=== PATIENT | male | born 1985 | race Caucasian/White ===

== ENCOUNTER 2017-03-05 08:45 | Emergency (ER) | payer OTHER ==
[~2017-03-05] VITALS: Ht 182.9 cm; Wt 79.7 kg
[2017-03-05 08:47] VITALS: BP 119/82; PULSE 81; RESP 16; TEMP 97.8; O2SAT 98
--- NOTE | 2017-03-05 09:32 | PD ---
HPI Chief Complaint: Injury Time Seen by Provider: 09:00 Travel History International Travel<30 days: No Contact w/Intl Traveler<30days: No Traveled to known affect area: No History of Present Illness HPI 32-year-old male here with complaint of left hand pain. Yesterday patient was attempting to get out of vehicle unstuck from a muddy area, when he got his hand pinched between a tire and the 2 x 4. Patient notes pain in the lateral aspect around the fourth and fifth digits of the hand ever since. Patient is right-hand dominant. No numbness or tingling. He denies any pain in the wrist , forearm, elbow, humeral region, shoulder. PFSH Past Medical History Medical History: Denies Significant Hx Tetanus Vaccination: Unknown Influenza Vaccination: No Past Surgical History Ear Surgery: Yes Social History Alcohol Use: Yes Tobacco Use: Yes (1 PPD) Substance Use: No Allergies-Medications (Allergen,Severity, Reaction): Coded Allergies: Penicillin (Verified Allergy, Unknown, 03/05/17) Tegretol (Verified Allergy, Unknown, 03/05/17) Reported Meds & Prescriptions Reported Meds & Active Scripts Active No Active Prescriptions or Reported Medications Review of Systems Except as stated in HPI: all other systems reviewed are Neg Physical Exam Narrative GENERAL: Well-appearing male in no acute distress SKIN: Focused skin assessment warm/dry. HEAD: Normocephalic. EYES: No scleral icterus. No injection or drainage. ENT: Mucous membranes pink and moist. CARDIOVASCULAR: Regular rate and rhythm. RESPIRATORY: No accessory muscle use. MUSCULOSKELETAL: Left hand is edematous, ecchymotic with tenderness to palpation over the fifth metacarpal ray. He is able to flex and extend the digits without any dysfunction, albeit with pain of the fourth and fifth digit. Range of motion at the wrist, and the remainder of the upper extremities unremarkable. Good distal sensation, capillary refill and pulses. NEUROLOGICAL: Awake and alert. Normal speech. PSYCHIATRIC: Appropriate mood and affect; insight and judgment normal. Data Data Last Documented VS Vital Signs Date Time Temp Pulse Resp B/P Pulse Ox O2 Delivery O2 Flow Rate FiO2 03/05/17 08:47 97.8 81 16 119/82 98 Orders Hand, Complete ([id number]) (03/05/17 ) Support Splint (03/05/17 09:27) Mandatory Outpatient Referral (03/05/17 09:32) [facility] Medical Decision Making Medical Screen Exam Complete: Yes Emergency Medical Condition: Yes Medical Record Reviewed: Yes Differential Diagnosis 32-year-old right-hand dominant male here with left hand pain since yesterday after petting between a tire and a 2 x 4. Differential includes metacarpal fracture, carpal fracture, dislocation, sprain, contusion. Narrative Course X-rays of the left hand were obtained that by my read shows a fracture of the left fifth metacarpal, nondisplaced. Patient placed in an ulnar gutter will be discharged home to follow up with hand surgery. Diagnosis Primary Impression: Fracture of fifth metacarpal bone of left hand Referrals: Cain Krishna III, MD call for appointment Additional Instructions: Splint as applied. Call hand surgeon, Dr. Krishna, for outpatient follow-up. Scripts No Active Prescriptions or Reported Meds Disposition: 01 DISCHARGE HOME Condition: Stable Rissa Jean MD March 05, 2017 09:32
--- NOTE | 2017-03-05 10:08 | RADHPO ---
EXAM DATE/TIME: 03/05/2017 09:13 [facility] COMPARISON: No previous studies available for comparison. INDICATIONS : Left hand pain, patient hand got stuck under a board and truck tire last night. MEDICAL HISTORY : None. SURGICAL HISTORY : None. ENCOUNTER: Initial ACUITY: 2 days PAIN SCORE: 10/10 LOCATION: Left hand 3rd digit FINDINGS: There is possible fracture along the radial aspect of the base of the fifth metacarpal which may refl ect fracture. No dislocation is seen. Bony mineralization is normal. CONCLUSION: Possible fracture base of the fifth metacarpal Jean Francois MD on March 05, 2017 at 10:04 Board Certified Radiologist. This report was verified electronically.
== END 2017-03-05 09:55 | disposition home or self-care (01) ==
LOC: PHED 08:45
DX: S62.347A Nondisplaced fracture of base of fifth metacarpal bone, left hand, initial encounter for closed fracture (principal); F17.200 Nicotine dependence, unspecified, uncomplicated; W23.1XXA Caught, crushed, jammed, or pinched between stationary objects, initial encounter
CPT/HCPCS: 29125; 73130